=== PATIENT | male | born 1990 | race Caucasian/White ===

== ENCOUNTER 2016-10-13 14:08 | Emergency (ER) | payer MEDICAID ==
[2016-10-13 15:13] VITALS: BP 129/85
[2016-10-13] MEDS ORDERED: Acetaminophen/HYDROcodone 325-5 MG Tab PO ONE (15:20)
--- NOTE | 2016-10-14 10:38 | CR ---
INDICATION: Injury, pain, swelling. Hit wall, pain across knuckles. RIGHT HAND: Three views of the right hand were obtained and revealed soft tissue swelling overlying the distal metacarpals - metacarpophalangeal joint area. However, a fracture, dislocation, or other significant bone or joint abnormality , was not identified. MTDD
--- NOTE | 2016-10-14 10:47 | ER ---
DATE SEEN: 10/13/2016 CHIEF COMPLAINT: Right hand pain. HISTORY OF PRESENT ILLNESS: This is a right-handed man who has just been hired to start his job first day at [employer] on 10/14/2016, he became angry last night and struck a wall with his right fist. He has pain and swelling to the right hand. No dysesthesias or compromised sensation. No previous history of fracture to his right hand. MEDICATIONS: None. ALLERGIES: None. SERIOUS INJURIES: Negative. REVIEW OF SYSTEMS: Negative, although he had documented MRI 02/20/2016, lower back, which demonstrates central herniation L4-5 disk, bilateral foraminal narrowing, and he has history of pain radiating down the bilateral lower legs. There is currently not much of a change from previous 09/13/2013 MRI. Review of systems negative. SOCIAL HISTORY: He smokes and drinks socially. There is no drug use or abuse. PHYSICAL EXAMINATION: VITAL SIGNS: Blood pressure 140/93, repeat blood pressure 129/85, heart rate recently elevated at 86, respirations 18, oxygen saturation 100%. CONSTITUTIONAL: Alert man who has moderate distress. He is here with his mother. HEENT: PERRLA intact. Pharynx without abnormality. LUNGS: Clear. HEART: Without murmur. ABDOMEN: Negative. EXTREMITIES: Right upper extremity mild swelling, dorsum right hand, metacarpals. Mild tenderness of the navicular bone-snuffbox. Moderate discomfort, 2nd, 3rd, 4th, and 5th proximal metacarpals. More discomfort at the 1st and also the 4th proximal metacarpal. No deformity noted. Mild swelling in dorsal hand. Cap refill intact. Sensation intact. He can bring his fingers down to the palmar surface with end range of motion pain. Extension is normal. Radial and ulnar pulses normal. DIAGNOSTIC STUDIES: X-ray reveals a suggestion on the lateral view of the possible chip fracture, dorsum of the 4th metacarpal and possibly irregularity of the cortex of the right 1st metacarpal. It is difficult to ascertain the specific metacarpal because the bones overlap on the lateral films even with oblique films, difficult to be certain. ASSESSMENT: 1. Fourth proximal metacarpal fracture, chip fracture. 2. Second proximal metacarpal fracture. PLAN: Splint, 8 tablets of Vicodin given to the patient. I explained to him that we have an opioid epidemic, so I prefer not to give him more pain medicines presently. Elevate. Use 1000 mg Tylenol, 600 mg ibuprofen first. For breakthrough pain, use the Vicodin. He is to follow up with Orthopedics this week. He has a new job at [employer]. /[id number] OSCAR/MYRIAM ARGUETA
== END 2016-10-13 15:22 | disposition home or self-care (01) ==
LOC: FB.ED 14:08
DX: S62.314A Displaced fracture of base of fourth metacarpal bone, right hand, initial encounter for closed fracture (principal); S62.310A Displaced fracture of base of second metacarpal bone, right hand, initial encounter for closed fracture; W22.8XXA Striking against or struck by other objects, initial encounter
CPT/HCPCS: 73130; 99283; A9270

== ENCOUNTER 2017-08-23 22:10 | Emergency (ER) | payer MEDICAID ==
[2017-08-23] MEDS ORDERED: Bupivacaine 0.5% 30 ML SDV INFILT ONE (22:11)
[2017-08-23] MEDS ORDERED: Diphtheria,Pertussis(Acell),Tetanus Vaccine 0.5 ML SDV IM ONE (22:49)
[2017-08-23] MEDS ORDERED: cefTRIAXone 1,000 MG VIAL IM ONE (22:49)
--- NOTE | 2017-08-23 22:49 | EDM.PDOC ---
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 Initially, the bleeding was severe. wound was still [id number] as he arrived here in the ED. Pt denied any other acute injuries. BP 155/92 pulse 78 RR 20 O2 sat 98% on RA temp 36.6 Onset: Today Onset Date: 08/23/17 Onset Time: 20:00 Duration: Hour(s): Location: Reports: Upper Extremity, Left Quality: Reports: Ache Severity: Moderate Improves with: Reports: Rest Context: Reports: Trauma Associated Symptoms: Reports: No Other Symptoms - Related Data Allergies Allergy/AdvReac Type Severity Reaction Status Date / Time cat dander Allergy itchy Uncoded 08/23/17 23:31 eyes, stuffy nose iodine dye Allergy Hives Uncoded 08/23/17 23:32 Home Meds: Home Meds Amoxicillin/Potassium Clav [Augmentin 875-125 Tablet] 1 each PO BID #20 tablet 08/23/17 [Rx] Past Medical History - Infectious Disease History Infectious Disease History: Reports: Chicken Pox - Past Surgical History GI Surgical History: Reports: Appendectomy, Hernia, Inguinal Musculoskeletal Surgical History: Reports: Other (See Below) Social & Family History - Tobacco Use Smoking Status *Q: Current Every Day Smoker Years of Tobacco use: 5 Packs/Tins Daily: 1 - Caffeine Use Caffeine Use: Reports: Tea - Recreational Drug Use Recreational Drug Use: No Review of Systems - Review of Systems Review Of Systems: See Below Constitutional: Reports: No Symptoms Eyes: Reports: No Symptoms Ears: Reports: No Symptoms Nose: Reports: No Symptoms Mouth/Throat: Reports: No Symptoms Respiratory: Reports: No Symptoms Cardiovascular: Reports: No Symptoms GI/Abdominal: Reports: No Symptoms Genitourinary: Reports: No Symptoms Musculoskeletal: Reports: No Symptoms Skin: Reports: Wound (left thumb) Neurological: Reports: No Symptoms Psychiatric: Reports: No Symptoms ED EXAM, GENERAL - Physical Exam Exam: See Below Exam Limited By: No Limitations General Appearance: Alert, WD/WN, Mild Distress Eye Exam: Bilateral Eye: Normal Inspection Ears: Normal External Exam Ear Exam: Bilateral Ear: Auricle Normal Nose: Normal Inspection Throat/Mouth: Normal Inspection Head: Atraumatic, Normocephalic Neck: Normal Inspection, Supple, Non-Tender, Full Range of Motion Respiratory/Chest: No Respiratory Distress, Lungs Clear, Normal Breath Sounds Cardiovascular: Normal Peripheral Pulses, Regular Rate, Rhythm, No Edema, No Gallop Peripheral Pulses: 1+: Radial (R) GI/Abdominal: Normal Bowel Sounds (Male) Exam: Deferred Rectal (Males) Exam: Deferred Back Exam: Normal Inspection Extremities: Normal Range of Motion, Normal Capillary Refill, Other (tip of left thumb LAC) Neurological: Alert, Oriented, CN II-XII Intact, Normal Cognition, Normal Gait, No Motor/Sensory Deficits Psychiatric: Normal Affect, Normal Mood Skin Exam: Warm, Dry, Wound/Incision (tip of left thump) ED TRAUMA EXTREMITY PROCEDURES - Laceration/Wound Repair Right Medial Finger Lac/Wound Length In cm: 1 (tip of thumb) Appearance: Superficial Distal NVT: Neuro & Vascular Intact, No Tendon Injury Anesthetic Type: Local Local Anesthesia - Bupivicaine (Marcaine): 0.5% Plain Local Anesthetic Volume: 1cc Skin Prep: Chlorhexidine (Hibiciens) Saline Irrigation (cc's): 1 Exploration/Debridement/Repair: Wound Explored, In a Bloodless Field, Explored to Base Closed With: Sutures Suture Size: 4-0 # of Sutures: 3 Suture Type: Other (ethilon) Drain Placement: No Sterile Dressing Applied: Nurse Tetanus Status Addressed: Yes (08/23/2017) Complications: No Course - Vital Signs Text/Narrative:: 26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 Initially, the bleeding was severe. wound was still [id number] as he arrived here in the ED. Pt denied any other acute injuries. BP 155/92 pulse 78 RR 20 O2 sat 98% on RA temp 36.6 PE: WNWD W M with a LAC left thumb Procedure: Please see note above Impression: LAC left tip of thimb, repaired in the ed. Tx: wound repair, Abx (Rocephin), Tetanus Reexam: Improved Plan: D/C with instructions Last Recorded V/S: Last Vital Signs Temp 36.8 C 08/23/17 22:15 Pulse 97 08/23/17 22:15 Resp 16 08/23/17 22:15 BP 155/92 H 08/23/17 22:15 Pulse Ox 100 08/23/17 22:15 - Orders/Labs/Meds Orders: Active Orders 24 hr Category Date Time Status Vaccines to be Administered [RC] PER UNIT ROUTINE Care 08/23/17 22:50 Active Meds: Medications Discontinued Medications Generic Name Dose Route Start Last Admin Trade Name Radhames PRN Reason Stop Dose Admin Ceftriaxone Sodium 1,000 mg 08/23/17 22:49 08/23/17 23:01 Rocephin IM 08/23/17 22:50 1,000 mg ONETIME ONE Administration Diphtheria/Tetanus/Acell Pertussis 0.5 ml 08/23/17 22:49 08/23/17 22:55 Adacel IM 08/23/17 22:50 0.5 ml .ONCE ONE Administration Departure - Departure Time of Disposition: 22:50 Disposition: Home, Self-Care 01 Condition: Good Clinical Impression: Laceration - Discharge Information Prescriptions: Amoxicillin/Potassium Clav [Augmentin 875-125 Tablet] 1 each PO BID #20 tablet Instructions: Amoxicillin; Clavulanic Acid tablets, Laceration Care, Adult Referrals: PCP,None [Primary Care Provider] - Forms: ED Department Discharge Additional Instructions: Please apply neosporine to wound twice daily for 5 days, woumnd check in 3 days , suture removal in 10 days after recheck of wound to be healed. Please come back if your symptoms get worse acutely - My Orders Last 24 Hours: My Active Orders 08/23/17 22:50 Vaccines to be Administered [RC] PER UNIT ROUTINE - Assessment/Plan Last 24 Hours: My Active Orders 08/23/17 22:50 Vaccines to be Administered [RC] PER UNIT ROUTINE
[2017-08-23 23:34] VITALS: BP 155/92
== END 2017-08-23 23:10 | disposition home or self-care (01) ==
LOC: FB.ED 22:10
DX: S61.012A Laceration without foreign body of left thumb without damage to nail, initial encounter (principal); F17.210 Nicotine dependence, cigarettes, uncomplicated; Z91.041 Radiographic dye allergy status; Z91.09 Other allergy status, other than to drugs and biological substances; W45.8XXA Other foreign body or object entering through skin, initial encounter; Y92.89 Other specified places as the place of occurrence of the external cause; Y99.0 Civilian activity done for income or pay; Z23 Encounter for immunization
CPT/HCPCS: 12001; 90471; 90715; 96372; 99282; J0696